=== PATIENT | male | born 1975 | race Hispanic/Latino ===

== ENCOUNTER 2022-05-01 22:22 | Emergency (ER) | payer MEDICAID ==
[2022-05-01 23:02] LABS: HEMATOCRIT 38.1 % (39.0-50.0); HEMOGLOBIN 13.1 g/dl (14.0-18.0); MEAN CELL VOLUME 86.6 fL CALC (80.0-100.0); MEAN CORPUSCULAR HGB 29.8 pG CALC (26.0-32.0); MEAN CORPUSCULAR HGB CONC 34.4 g/dL CAL (32.0-36.0); NEUT# 1.85 thou/uL (1.82-7.42); RED BLOOD COUNT 4.4 mill/uL (4.70-6.10); RED CELL DISTRI WIDTH 14.4 % (11.5-15.5)
[2022-05-01 23:03] LABS: URINE BILIRUBIN - DIPSTICK NEGATIVE (NEGATIVE); URINE BLOOD DIPSTICK SMALL (NEGATIVE); URINE COLOR YELLOW; URINE GLUCOSE - DIPSTICK NEGATIVE (NEGATIVE); URINE KETONE NEGATIVE (NEGATIVE); URINE LEUK ESTERASE NEGATIVE (NEGATIVE); URINE NITRITE - DIPSTICK NEGATIVE (Negative); URINE PROTEIN - DIPSTICK NEGATIVE (NEG-TRACE); URINE SPECIFIC GRAVITY <=1.005; URINE UROBILINOGEN - DIPSTICK 0.2 E.U./dL (0.2)
[2022-05-01 23:17] LABS: ALBUMIN 4.8 g/dL (3.2-5.0); ALKALINE PHOSPHATASE 92 u/l (38-126); ANION GAP 19 (6-22 (CALC)); BILIRUBIN, TOTAL 0.2 mg/dL (0.0-1.4); BUN 7 mg/dL (9-20); BUN/CREATININE RATIO 10 (12-20 (CALC)); CARBON DIOXIDE 22 mmol/l (22-30); CHLORIDE 105 mmol/l (95-108); CREATININE 0.8 mg/dL (0.7-1.3); GFR FOR AFR.AMER. > 60 ML/MIN (>=60 (CALC)); GFR OTHER RACES > 60 ML/MIN (>=60 (CALC)); POTASSIUM 3.3 mmol/l (3.5-5.1); SGOT/AST 165 u/l (17-59); SODIUM 142 mmol/l (137-146); TOTAL PROTEIN 7.7 g/dL (6.3-8.2)
[2022-05-01 23:19] LABS: URINE SQUAMOUS EPITHELIAL CELL FEW EPI/hpf (0-FEW); URINE WBC 0-2 WBC/hpf (0-5)
[2022-05-01 23:26] LABS: ETHYL ALCOHOL 416 mg/dl (0-30)
[2022-05-02 13:22] VITALS: BP 140/101
[2022-05-02 13:33] VITALS: BP 135/89
== END 2022-05-02 13:36 | disposition home or self-care (01) ==
LOC: ED 22:22
PROVIDERS: Emergency Medicine
DX: F10.129 Alcohol abuse with intoxication, unspecified (principal); Y90.8 Blood alcohol level of 240 mg/100 ml or more; E11.9 Type 2 diabetes mellitus without complications

== ENCOUNTER 2022-06-08 12:12 | Emergency (ER) | payer SELFPAY ==
[2022-06-08] VITALS (11 sets, daily range): BP systolic 127–139; BP diastolic 77–98
[2022-06-08 13:44] LABS: HEMATOCRIT 39.9 % (39.0-50.0); HEMOGLOBIN 13.6 g/dl (14.0-18.0); MEAN CELL VOLUME 89.3 fL CALC (80.0-100.0); MEAN CORPUSCULAR HGB 30.4 pG CALC (26.0-32.0); MEAN CORPUSCULAR HGB CONC 34.1 g/dL CAL (32.0-36.0); NEUT# 0.73 thou/uL (1.82-7.42); RED BLOOD COUNT 4.47 mill/uL (4.70-6.10); RED CELL DISTRI WIDTH 14.7 % (11.5-15.5)
[2022-06-08 14:03] LABS: ALBUMIN 5.1 g/dL (3.2-5.0); ALKALINE PHOSPHATASE 94 u/l (38-126); ANION GAP 17 (6-22 (CALC)); BUN 3 mg/dL (9-20); BUN/CREATININE RATIO 5 (12-20 (CALC)); CARBON DIOXIDE 24 mmol/l (22-30); CHLORIDE 107 mmol/l (95-108); CREATININE 0.6 mg/dL (0.7-1.3); GFR FOR AFR.AMER. > 60 ML/MIN (>=60 (CALC)); GFR OTHER RACES > 60 ML/MIN (>=60 (CALC)); LIPASE 162 u/l (23-300); POTASSIUM 3.8 mmol/l (3.5-5.1); SGOT/AST 119 u/l (17-59); SODIUM 144 mmol/l (137-146); TOTAL PROTEIN 8.6 g/dL (6.3-8.2)
[2022-06-08 14:05] LABS: BILIRUBIN, TOTAL 0.4 mg/dL (0.0-1.4)
[2022-06-08 15:42] LABS: URINE BILIRUBIN - DIPSTICK NEGATIVE (NEGATIVE); URINE BLOOD DIPSTICK NEGATIVE (NEGATIVE); URINE COLOR YELLOW; URINE GLUCOSE - DIPSTICK NEGATIVE (NEGATIVE); URINE KETONE NEGATIVE (NEGATIVE); URINE LEUK ESTERASE NEGATIVE (NEGATIVE); URINE PROTEIN - DIPSTICK NEGATIVE (NEG-TRACE); URINE UROBILINOGEN - DIPSTICK 0.2 E.U./dL (0.2)
[2022-06-08 15:43] LABS: URINE NITRITE - DIPSTICK NEGATIVE (Negative)
[2022-06-09 06:47] VITALS: BP 136/94
--- NOTE | 2022-06-10 08:15 | NUR ---
PRELIMINARY BC SHOWS GRAM (+) COCCI IN 2/4 VIALS FROM THE SAME SET. RESULTS REPORTED TO DR CAMACHO. NO NEW ORDERS. WILL FOLLOW UP WHEN FINAL BC RESULTS AVAILABLE.
== END 2022-06-09 09:30 | disposition home or self-care (01) | DRG 897 ==
LOC: ED 12:12
PROVIDERS: Nurse Practitioner
DX: F10.129 Alcohol abuse with intoxication, unspecified (principal); E11.9 Type 2 diabetes mellitus without complications; F17.200 Nicotine dependence, unspecified, uncomplicated; Y90.8 Blood alcohol level of 240 mg/100 ml or more
CPT/HCPCS: Q9967; S0164